=== PATIENT | male | born 1995 | race Caucasian/White ===

== ENCOUNTER 2020-11-23 22:26 | Emergency (ER) | payer OTHER ==
[~2020-11-23] VITALS: Ht 175.3 cm; Wt 57.1 kg
== END 2020-11-24 00:34 | disposition home or self-care (01) ==
LOC: ED 22:26
DX: S63.501A Unspecified sprain of right wrist, initial encounter (principal); V00.131A Fall from skateboard, initial encounter; F17.200 Nicotine dependence, unspecified, uncomplicated
CPT/HCPCS: 73110; 99283-25; A9270

== ENCOUNTER 2022-10-15 14:17 | Emergency (ER) | payer OTHER ==
[~2022-10-15] VITALS: Ht 175.3 cm; Wt 57.1 kg
[2022-10-15] MEDS ORDERED: IBU600 MG PO (15:41)
[2022-10-15 16:16] VITALS: BP 115/71
== END 2022-10-15 16:18 | disposition home or self-care (01) ==
LOC: ED 14:17
DX: S93.401A Sprain of unspecified ligament of right ankle, initial encounter (principal); W17.89XA Other fall from one level to another, initial encounter; F17.200 Nicotine dependence, unspecified, uncomplicated
CPT/HCPCS: 73610; 99283-25